=== PATIENT | female | born 1940 | race Caucasian/White ===

== ENCOUNTER 2022-10-20 09:31 | Observation (INO) ==
--- NOTE | 2022-09-30 11:35 | PAT Medication Instructions ---
Medication Instructions Date of Service September 30, 2022 Home Medications levothyroxine 75 mcg tablet (Synthroid) 75 mcg PO QAM metoprolol tartrate 25 mg tablet 12.5 - 25 mg PO UD olmesartan 40 mg tablet 40 mg PO QAM cholecalciferol (vitamin D3) 25 mcg (1,000 unit) capsule 1,000 units PO QAM hydrochlorothiazide 25 mg tablet 25 mg PO DAILY PRN Hypertension meloxicam 7.5 mg tablet 7.5 mg PO BID potassium chloride 10 mEq tablet,extended release 10 meq PO QPM simvastatin 10 mg tablet 10 mg PO QPM amlodipine 5 mg tablet 7.5 mg PO QAM apixaban 5 mg tablet (Eliquis) 5 mg PO BID buspirone 5 mg tablet 5 mg PO BID PRN Anxiety ASK your surgeon for instructions meloxicam 7.5 mg tablet 7.5 mg PO BID ASK your prescriber and surgeon apixaban 5 mg tablet (Eliquis) 5 mg PO BID (in order to get spinal anesthesia- will need to hold Eliquis/apixaban at least 72 hours prior to surgery) DO NOT take the morning of surgery olmesartan 40 mg tablet 40 mg PO QAM cholecalciferol (vitamin D3) 25 mcg (1,000 unit) capsule 1,000 units PO QAM hydrochlorothiazide 25 mg tablet 25 mg PO DAILY PRN Hypertension Take morning of surgery With a small sip of water, OTHERWISE NOTHING TO EAT OR DRINK AFTER MIDNIGHT: levothyroxine 75 mcg tablet (Synthroid) 75 mcg PO QAM metoprolol tartrate 25 mg tablet 12.5 - 25 mg PO UD amlodipine 5 mg tablet 7.5 mg PO QAM buspirone 5 mg tablet 5 mg PO BID PRN Anxiety (if needed) Take evening before surgery hydrochlorothiazide 25 mg tablet 25 mg PO DAILY PRN Hypertension (if needed) metoprolol tartrate 25 mg tablet 12.5 - 25 mg PO UD potassium chloride 10 mEq tablet,extended release 10 meq PO QPM simvastatin 10 mg tablet 10 mg PO QPM buspirone 5 mg tablet 5 mg PO BID PRN Anxiety (if needed) Other Notes If you have any questions please call us at [phone] or [phone] or [phone] or [phone]
--- NOTE | 2022-10-04 13:25 | Anesthesiology Consultation ---
Date of Service October 04, 2022 Assessment & Plan (1) Encounter for pre-operative examination: - COVID screening: Per assessment on 10/04: No known COVID-19 positive contacts or current COVID-19 related symptoms. Travel screen negative. Patient vaccinated. At surgeon discretion if preop Covid testing being done. - Outpatient joint assessment: Pt currently scheduled for inpatient pathway. If surgeon requests review for outpatient joint pathway, patient is not recommended candidate for outpatient joint program from anesthesia standpoint. - Cardiology visit (07/12/22): "TBS s/p DCP implantation December 2020.. pAF [id number] (age, HTN, Female).. Symptomatic junctional rhythm on Zio patch November 2020.. HR and BP well controlled.. euvolemic on exam.. device checks reveals stable thresholds with adequate pacing burden" One year followup recommended. - Eliquis instructions: patient made aware that in order for spinal anesthesia, Eliquis needs to be held 72 hours prior to surgery. Patient voiced understanding/will check if okay with prescriber. - Patient acceptable risk for surgery pending surgeon-ordered PCP preop evalu ation (JUAN DAVID Castro, appt 10/15). Chart Review Chart Review: Patient seen in Pre Admission Testing Teaching & Discussion Pre-Anesthesia Teaching/Discussion Notes: Instructed NPO after midnight before surgery,except medications with 15 cc of water. Medication instructions provided according to the PAT guidelines. History Surgery Operation Date: 10/20/22 11:55 Proposed Procedures p Left Total Knee Arthroplasty - Stas Degroot MD Height/Weight Height: 5 ft 2 in Weight: 85.3 kg Allergies Allergy/AdvReac Type Severity Reaction Status Date / Time No Known Allergies Allergy Verified 09/29/22 09:35 Medications Home Medications Medication Instructions Recorded Confirmed Last Taken levothyroxine 75 mcg tablet 75 mcg PO QAM 04/03/19 09/29/22 Unknown (Synthroid) metoprolol tartrate 25 mg tablet 12.5 - 25 mg PO UD 04/03/19 09/29/22 01/06/21 06:00 olmesartan 40 mg tablet 40 mg PO QAM 04/03/19 09/29/22 Unknown cholecalciferol (vitamin D3) 25 1,000 units PO QAM 04/06/19 09/29/22 Unknown mcg (1,000 unit) capsule hydrochlorothiazide 25 mg tablet 25 mg PO DAILY PRN Hypertension 04/06/19 09/29/22 01/06/21 06:00 meloxicam 7.5 mg tablet 7.5 mg PO BID 04/06/19 09/29/22 Unknown potassium chloride 10 mEq 10 meq PO QPM 04/06/19 09/29/22 Unknown tablet,extended release simvastatin 10 mg tablet 10 mg PO QPM 04/06/19 09/29/22 Unknown amlodipine 5 mg tablet 7.5 mg PO QAM 01/06/21 09/29/22 01/06/21 06:00 apixaban 5 mg tablet (Eliquis) 5 mg PO BID 09/29/22 09/29/22 Unknown buspirone 5 mg tablet 5 mg PO BID PRN Anxiety 09/29/22 09/29/22 Unknown Past Medical History Medical History Anxiety Chronic kidney disease Stage III History of COVID-2021 (home test)- cough, body aches, and had exposure Treated with Paxlovid > symptoms resolved Hyperlipidemia Hypertension Hypothyroidism 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 Fernando ([facility]) Paroxysmal atrial fibrillation Exercise / Class Metabolic Activity II 4-5 Yardwork/Stairs/Walk up hill Past Family History Family History Father Hypertension Diabetes Sister Diabetes Brother Diabetes Past Surgical History Surgical History History of dilatation and curettage Hx of colonoscopy S/P appendectomy S/P cholecystectomy Past Anesthesia History No Hx of Anesthesia Complications and No Family Hx of Anesthesia Complications History of PONV No Hx of PONV and No Hx of Motion Sickness Social History Smoking Status: Never smoker Do You Dip or Chew Tobacco: No Hx Alcohol Use: No Hx Substance Use: No substance use type: does not use Review of Systems Patient denies chest pain, shortness of breath, dyspnea on exertion, fever, chills, cough, wheezing, palpitations. Physical Exam Vital Signs VITALS BP 145/65 P 65 TEMP 98.2 SP02 94%RA RESP 16 PHYSICAL Full cervical extension range of motion. Full TMJ range of motion. TMD 3.5 finger breaths Mallampati Score 3 Dentition: partial upper Lungs: clear throughout to auscultation Cardiac: regular rate and rhythm, no murmurs noted Spine: normal Carotid arteries: negative bruit Extremities: no LE edema Lab Results Anesthesia Preop Results Results Anesthesia Widget: WBC 7.47 K/ul (4.8-10.8) 10/04/22 Hgb 13.5 g/dl (12.0-16.0) 10/04/22 Hct 39.7 % (37.0-47.0) 10/04/22 Plt 218 K/uL (130-400) 10/04/22 Na 141 mmol/L (136-145) 10/04/22 K 3.5 mmol/L (3.5-5.1) 10/04/22 Cl 102 mmol/L (98-107) 10/04/22 CO2 34 mmol/L (21-32) H 10/04/22 BUN 27 mg/dl (6-23) H 10/04/22 Creat 1.18 mg/dl (0.6-1.2) 10/04/22 Glucose Level 164 mg/dl (70-99(Fasting)) H 10/04/22 PT 10.3 Seconds (9.0-12.0) 10/04/22 PTT 27.9 Seconds (21.0-31.0) 10/04/22 INR 0.9 (0.9-1.1) 10/04/22 HA1c 5.8 % (4.5-5.6) H 10/04/22 Urine Color Yellow 10/04/22 Urine Appearance Clear (Clear) 10/04/22 Urine pH 5.0 (4.5-7.5) 10/04/22 Urine Specific [place] 1.023 (1.000-1.030) 10/04/22 Urine Protein Negative (Negative) 10/04/22 Urine Glucose (UA) Negative (Negative) 10/04/22 Urine Ketones Negative (Negative) 10/04/22 Urine Blood Negative (Negative) 10/04/22 Urine Nitrite Negative (Negative) 10/04/22 Urine Bilirubin Negative (Negative) 10/04/22 Urine Urobilinogen Negative (Negative) 10/04/22 Urine Leukocyte Esterase 2+ (Negative) H 10/04/22 Urine WBC (Auto) >30 /hpf (0-5) H 10/04/22 Urine RBC (Auto) 0-4 /hpf (0-4) 10/04/22 Urine Hyaline Casts (Auto) 1-5 /lpf (0-5) 10/04/22 Urine Epithelial Cells (Auto) 20-30 /lpf (0-5) H 10/04/22 Urine Bacteria (Auto) 1+ (Negative) H 10/04/22 Blood Type B Positive 10/04/22 Antibody Screen NEGATIVE 10/04/22 Testing Laboratory Results Surgeon's office made aware of abnormal UA* Electrocardiogram Date: 10/04/22 Atrial-paced rhythm with prolonged AV conduction at 66bpm. RBBB. Chest X-Ray Date: 10/04/22 FINDINGS: Left subclavian pacer. Cardiomediastinal and hilar silhouettes are within normal limits. No pneumothorax, pleural effusion, airspace consolidation or pulmonary edema. Bones appear grossly intact. Cholecystectomy. IMPRESSION: No acute process. Stress Test Date: 11/02/20 Type: DSE DSE is normal without resting LV wall motion abnormalities or inducible ischemia. 91% MPHR. No significant arrhythmias. Rest echo: EF 70%. Mild TR/AR. Mild mitral annular calcification. Grade I DD. Mild AV sclerosis. Other Testing Pacer check (09/19/22) Squirrly. Normal device function. 12.33 years battery longevity. AP 66.67%. RVP 0.04%. AT/AF burden 0%. Mode AAIR <=>DDDR. COVID-19 Risk Screen Screening Information COVID-19 Screen Date: 10/04/22 Exposure 21 Days Family/Household +COVID Last 21 Days: No Exposure 10 Days Any COVID Exposure Last 10 Days: No Symptoms Last 10 Days Experienced COVID Sx Last 10 Days: No + COVID 0-90 Days COVID + in Last 0-90 Days: No
--- NOTE | 2022-10-16 08:41 | History & Physical Report ---
Date of Service October 16, 2022 Assessment & Plan (1) Primary osteoarthritis of left knee: Plan: Treatment options discussed with the patient. She has failed conservative measures. She would like to proceed with surgical intervention. Risks, benefits and alternatives to surgery including but not limited to infection, DVT, pain, stiffness, need for revision surgery, damage to blood vessels, damage to nerves, PE, , were discussed with the patient and they wish to proceed. Plan for left total knee arthroplasty scheduled for October 20 at [facility] with Dr. Degroot. Plan on outpatient physical therapy. Plan on resuming home Eliquis postop for DVT prophylaxis. All questions answered. Patient will follow postop. History of Present Illness Chief Complaint: Left knee pain Primary Care Provider: Adamaris Jesus PA-C 82-year-old female with past medical history significant for hypertension, CKD, hypothyroidism, paroxysmal A-fib, pacemaker for tachybradycardia syndrome who presents with ongoing left knee pain. Pain is interfering with her daily activities. She has failed conservative measures including intra-articular steroid injection. She would like to proceed with surgical intervention. Patient denies headaches, sweats, fevers, chills, double vision, blurred vision, cough, sore throat, dysphagia, chest pain, sob, wheezing, n/v/d/c, numbness, tingling, fatigue, urinary symptoms, mood disorders. ROS positive for left knee pain and stiffness. Allergies Allergy/AdvReac Type Severity Reaction Status Date / Time No Known Allergies Allergy Verified 09/29/22 09:35 Home Medications Medication Instructions Recorded Confirmed Type levothyroxine 75 mcg tablet 75 mcg PO QAM 04/03/19 09/29/22 History (Synthroid) metoprolol tartrate 25 mg tablet 12.5 - 25 mg PO UD 04/03/19 09/29/22 History olmesartan 40 mg tablet 40 mg PO QAM 04/03/19 09/29/22 History cholecalciferol (vitamin D3) 25 1,000 units PO QAM 04/06/19 09/29/22 History mcg (1,000 unit) capsule hydrochlorothiazide 25 mg tablet 25 mg PO DAILY PRN Hypertension 04/06/19 09/29/22 History meloxicam 7.5 mg tablet 7.5 mg PO BID 04/06/19 09/29/22 History potassium chloride 10 mEq 10 meq PO QPM 04/06/19 09/29/22 History tablet,extended release simvastatin 10 mg tablet 10 mg PO QPM 04/06/19 09/29/22 History amlodipine 5 mg tablet 7.5 mg PO QAM 01/06/21 09/29/22 History apixaban 5 mg tablet (Eliquis) 5 mg PO BID 09/29/22 09/29/22 History buspirone 5 mg tablet 5 mg PO BID PRN Anxiety 09/29/22 09/29/22 History Past Med/Surg History Medical History Anxiety Chronic kidney disease Stage III History of COVID-2021 (home test)- cough, body aches, and had exposure Treated with Paxlovid > symptoms resolved Hyperlipidemia Hypertension Hypothyroidism 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 Fernando ([facility]) Paroxysmal atrial fibrillation Surgical History History of dilatation and curettage Hx of colonoscopy S/P appendectomy S/P cholecystectomy Family History Father Hypertension Diabetes Sister Diabetes Brother Diabetes Social History (Updated 04/03/19 @ 15:36 by Katie Hernández) Smoking Status: Never smoker Second Hand Exposure: Yes (HX YEARS AGO); Do You Dip or Chew Tobacco: No; Hx Alcohol Use: No Hx Substance Use: No Preferred Language: Chadian Communication Ability: Effective Visual Education Teacher Required: No Beliefs That Will Affect Care: None Current Living Situation: Alone Feels Safe at Home: Yes Assistive Devices: Cane, Denture - Upper and Glasses Review of Systems All systems reviewed & are unremarkable except as noted in HPI & below Physical Exam Constitutional: well developed and well nourished; no acute distress Eyes: PERRL, conjunctivae normal, anicteric sclerae ENMT: external ear and nose normal, oropharynx normal Neck: trachea midline, no thyromegaly Respiratory: normal respiratory effort, lungs clear to auscultation Cardiovascular: RRR, no murmur, no edema Musculoskeletal: Left knee: Range of motion is 10 to 115 degrees. Varus alignment. Mild effusion. Tenderness medial joint line. Mild crepitation on range of motion. Stable to valgus and varus stress test. Skin: no rashes, warm and dry Neurologic: patellar DTR's 2+ bilat, sensation intact Psychiatric: A+Ox3, euthymic affect Results & Data Diagnostic Findings Left knee radiographs demonstrate tricompartmental arthritic changes with end- stage osteoarthritis medial compartment, [id number]. There is periarticular osteophytes all 3 compartments. Radiopacity likely osteochondral loose body posterior lateral compartment.
[~2022-10-20 09:31] MED LIST: ACETAMINOPHEN 500 MG TAB PO SCH; BUPIVACAINE 0.5 % 5 MG/1 ML PF 10ML VIAL ONE; CeleBREX 200 MG CAP PO SCH; EPINEPHrine INJ 1 MG/ML AMP ONE; FAMOTIDINE 20 MG TAB PO SCH; GABAPENTIN 300 MG CAP PO SCH; LR 500ML BOLUS, THEN 15ML/HR IV SCH; METOCLOPRAMIDE HCL 10 MG TABLET PO SCH; ROPIVACAINE 0.5% 5 MG/ML 30 ML VIAL ONE; ROPIVACAINE 0.5% HCL/PF 150 MG, BUPIVACAINE 0.75% MPF 20 ML, EPINEPHrine 30MG/30ML (OR ... INFIL SCH; TRANEXAMIC ACID 1,000 MG **IV Intra-op IV SCH; TRANEXAMIC ACID 1,000 MG **IV Pre-op IV SCH; ceFAZolin 2000MG 2,000 MG/15 ML SYR IV SCH; dexAMETHasone 4 MG TAB PO SCH
[2022-10-20] MEDS ORDERED: ORTHO JOINT ANESTHETIC ONE (10:33)
[2022-10-20] MEDS ORDERED: PROPOFOL IV EMULSION 10 MG/ML 20 ML VIAL IV ONE (10:44)
[2022-10-20] MEDS ORDERED: MIDAZOLAM HCL 1 MG/ML 2ML VIAL ONE (10:44)
[2022-10-20] MEDS ORDERED: ePHEDrine sulfate 50 MG/ML AMP ONE (10:44)
[2022-10-20] MEDS ORDERED: SODIUM CHLORIDE 0.9% PF INJ 10 ML VIAL ONE (10:44)
[2022-10-20] MEDS ORDERED: ONDANSETRON INJ 2 MG/ML 2 ML VIAL ONE (10:44)
--- NOTE | 2022-10-20 11:19 | History & Physical Bridge Note ---
Date of Service October 20, 2022 History & Physical Bridge Note I have examined the patient, reviewed the History & Physical and in the interval since the performance of the History & Physical I have noted the following changes of clinical significance: no changes noted
--- NOTE | 2022-10-20 13:40 | Operative Report ---
Post Operative Report Pre & Post Diagnosis Operation Date: 10/20/22 11:40 Pre-Op Diagnosis: Left Knee Osteoarthritis Post-Op Diagnosis: Left Knee Osteoarthritis I identified the patient and participated in the time-out.: Yes Procedure Operation Date: 10/20/22 11:40 Actual Procedures p Left Total Knee Arthroplasty, Cemented(Left), maggie and Acticoat superficial wound VAC application- Stas eDgroot MD Surgeon Stas Degroot MD Middleware Developer Dustin RAY Estimated Blood Loss 5 Findings Consistent with Post-Op Diagnosis Specimens Bone cuts Drains 2 Hemovac Anesthesia Type MAC Spinal Regional Complications none Disposition Disposition: Recovery Room Indications 82-year-old female with severe knee osteoarthritis left knee failed conservative management. Radiographs demonstrate tricompartmental DJD varus knee [id number] medial and lateral compartment with some bone loss medial compartment. Description of Procedure Patient taken to the operating room the size under spinal MAC regional block anesthesia. Patient was placed supine on the operating table. A pneumatic tourniquet was placed about the left upper thigh. The left lower extremity was prepped and draped in sterile fashion. Knee exam demonstrated range of motion 15 to 115 degrees no pseudolaxity no instability moderate effusion. The leg was elevated exsanguinated with an Esmarch bandage and pneumatic tourniquet was raised to 325 millimeters of mercury. Skin incised sharply in longitudinal fashion. Subcutaneous flaps elevated. Incision was made through the medial retinaculum extending up in the mid third of the quadriceps tendon and down to the medial tibial tubercle. Intra-articular findings demonstrated tricompartmental osteoarthritis. There is [id number] in the medial compartment with some bone loss there was [id number] in the lateral compartment as well. There were patellar osteophytes and patellofemoral OA. There was 1 large loose body that was resected.. The [employer] total knee arthroplasty system was used. To expose the knee the infrapatellar fat pad was resected. The meniscal remnants and cruciate ligaments were resected. The anterior fat pad over the femur in the area of the anterior flange of the femoral component was resected. Lateral synovial bands release. The femur was exposed. An intramedullary drill hole was made into the canal. A guide daniel was placed. Distal femoral cutting guide was adjusted to resect a 5 degree valgus cut with 10 millimeters distal femur resected. The knee was extended and a subperiosteal peel lateral release was performed around the patella. Patella width was measured and width was reproduced using a freehand cut technique and a 32 symmetrical patella component. The 3 drill holes were made and the excess lateral facet was beveled off to prevent any impingement. Attention was taken back to the femur which was exposed with retractors and the femoral sizing guide was pinned in position. The drill holes were placed in 3 of external rotation to match epicondylar axis. Femur sized for a 4 component. The 4-in-1 cutting block was placed and then the anterior posterior and chamfer cuts are made. The tibia was then subluxed. The external tibial cutting guide was just to make a perpendicular cut to the long axis of the tibia below the most deficient bone loss side. A lamina automatic hemmer was used and the flexion extension gaps were balanced. All posterior osteophytes removed. All meniscal remnants were resected. The tibia exposed and the trial tibial component size 3 was externally rotated in line with the tibial tubercle and pinned in position. The punch for stem was used. The notch cutting device was centered appropriately and the femoral notch cut was made. The femoral trial was inserted. Trial tibial inserts were placed and size 11 gave balanced ligaments through flexion and extension. Patella tracking was assessed. The patella tracked centrally. The trial components were then removed and the orthomix anesthetic cocktail was injected per protocol. The knee was then copiously irrigated with pulsatile lavage saline solution. Final components were then cemented with Simplex cement. Final components were [place] triathlon posterior stabilized size 4 left femoral component, 3 primary tibial baseplate, 3 x 11 mm posterior s tabilized X.3 polyethylene tibial bearing insert and a symmetrical patella X.3 polyethylene size 33 x 9 mm patella. After the cement cured the Betadine soak was used for 3 minutes. Further pulsatile lavage irrigation was then performed and 2 Hemovac drains were brought out laterally. The quadriceps tendon and medial retinaculum were closed with figure of 8 #1 Vicryl sutures. The knee was taken through full range of motion and the repair was secure. Knee range of motion was 0 through 130 degrees. The subcutaneous tissues were closed with 2-0 Vicryl sutures. Skin was closed with dinesh. Maggie and Acticoat superficial wound VAC was applied. The patient tolerated the procedure well. Dustin RAY was my physician nurse practitioner physicians assistant who participated as waiter/waitress first class and was involved in all aspects of the procedure including patient positioning prepping and draping,leg positioning ,soft tissue retraction and instrument management and participated in the closing and will participate in postoperative care of the patient. The patient tolerated the procedure well. I attest to the content of the Intraoperative Record and any orders documented therein. Any exceptions are noted below.
--- NOTE | 2022-10-20 14:49 | Anesthesiology Progress Note ---
Date of Service October 20, 2022 Anesthesia Post Procedure Vital Signs Vital Signs: Temp Pulse Pulse Resp BP Pulse Ox O2 Del Method 10/20/22 14:40 67 12 130/69 98 Room Air 10/20/22 14:30 69 12 137/66 98 Oxymask 10/20/22 14:20 63 16 135/71 100 Oxymask 10/20/22 14:14 36.2 C L 69 15 132/71 100 Oxymask 10/20/22 09:56 36.4 C L 83 20 133/84 96 Room Air O2 Flow Rate 10/20/22 14:40 10/20/22 14:30 2 10/20/22 14:20 4 10/20/22 14:14 6 10/20/22 09:56 Pain Intensity Left Knee: Pain Intensity: 8 Transfer of Care Handoff Completed per policy Notes Mental Status: alert / awake / arousable Patient Amnestic to Procedure: Yes Nausea / Vomiting: adequately controlled Pain: adequately controlled Airway Patency, RR, SpO2: stable & adequate BP & HR: stable & adequate Hydration State: stable & adequate Neuraxial Anesthesia: was administered and sensory block is resolving Anesthetic Complications: no major complications apparent
--- NOTE | 2022-10-20 15:24 | XRay Report ---
XR knee LT 1 or 2V routine CLINICAL HISTORY: Postoperative evaluation. COMPARISON: None FINDINGS: Alignment of the total left knee arthroplasty is anatomic. There is no periprosthetic frac ture. There are no unexpected radiopaque foreign bodies. There are skin dinesh. IMPRESSION: Expected findings following total left knee arthroplasty. ACT 112: Negative or not required by law. Electronically signed by: Daniel Acuña M.D. 10/20/2022 3:23 PM
[2022-10-20] MEDS ORDERED: bisacodyL 10 MG SUPP PR PRN (15:55)
[2022-10-20] MEDS ORDERED: NALOXONE HCL 0.4 MG/1 ML VIAL/CARP IV PRN (15:55)
[2022-10-20] MEDS ORDERED: busPIRone 5 MG TAB PO PRN (15:55)
[2022-10-20] MEDS ORDERED: HYDROmorphone INJ 0.5 MG/0.5 ML SYR IV PRN (15:55)
[2022-10-20] MEDS ORDERED: oxyCODONE HCL IR 5 MG TAB (IMMEDIATE RELEASE) PO PRN (15:55)
[2022-10-20] MEDS ORDERED: hydroCHLOROthiazide 25 MG TAB PO PRN (15:55)
[2022-10-20] MEDS ORDERED: METOCLOPRAMIDE HCL INJ 5 MG/ML 2 ML VIAL IV PRN (15:55)
[2022-10-20] MEDS ORDERED: ONDANSETRON INJ 2 MG/ML 2 ML VIAL IV PRN (15:55)
[2022-10-20] MEDS ORDERED: MAGNESIUM HYDROXIDE SUSP 30 ML UDC PO PRN (15:55)
[2022-10-20] MEDS ORDERED: SODIUM CHLORIDE 0.9% 1000ML 1,000 ML IV SCH (15:55)
--- NOTE | 2022-10-20 16:00 | Consultation ---
Date of Consultation October 20, 2022 Assessment & Plan (1) S/P total knee arthroplasty: Post op day# 0 S/P Left TKA by Dr Degroot EBL# 5ml -pain management per ortho -wound management per ortho -PT/OT as appropriate -DVT prophylaxis per ortho -incentive spirometry -monitor H&H for acute blood loss anemia; pre-op Hgb: 13.5 (2) Paroxysmal atrial fibrillation: Anticoagulated on Eliquis Last dose of Eliquis 10/16/2022. -Resume Eliquis tonight per ortho recommendations -Continue metoprolol tartrate (3) Tachy-kb syndrome: S/P Pacemaker (4) Trigeminal neuralgia: -Continue Trileptal [place] [facility] (5) Hypertension: -Continue amlodipine, olmesartan -Hold HCTZ and reassess tomorrow (6) Hyperlipidemia: -Continue simvastatin (7) CKD (chronic kidney disease), stage III: Baseline Cr: 1.1 -Monitor renal functions, avoid nephrotoxic agents when possible (8) Hypothyroidism: -Continue levothyroxine (9) GERD (gastroesophageal reflux disease): -Continue Pepcid DVT Prophylaxis -SCDs Disposition per primary team Follows with Adamaris Jesus PA-C for routine care Pt was seen and care coordinated with Dr Samaniego. See addendum Thank you for this consultation. We will follow the patient with you during their hospital stay. You can reach a [facility] via [facility] Supervising Physician Co-Signing Physician Notes I have seen and examined the patient and have discussed the case with the provider above. I agree with the assessment and plan as stated. 82 yo F recovering well from her knee surgery today. Pain is controlled. No symptoms at this time. Physical exam reveals reg rate and rhythm with S1/2 heard and no heart murmurs. Lungs are CTAB. Abdomen is soft NTND. She is NVI in lower extremities bilaterally. Labwork/medications reviewed. Cont recommendations above. Thank you for this consultation. DO Aden History of Present Illness Requesting Physician: Dr Degroot Reason for Consultation: Post op medical management Attending Physician: Stas Degroot MD History of Present Illness Patient is 82-year-old female with PMH HTN, HLD, tachybrady syndrome s/p pacemaker, paroxysmal atrial fibrillation anticoagulated on Eliquis, RBBB, CKD III, trigeminal neuralgia, anxiety, GERD, OA seen in medical consultation s/p left TKA today by Dr. Degroot. Post op patient reports is doing well. Denies any pain currently. States numbness/tingling leg starting to wear off. Denies fever/chills, N/V/D/C, MIRANDA, dizziness, CP, SOB, palpitations, cough, rhinorrhea, abdominal pain, extremity edema, rashes, urinary symptoms. Allergies Allergy/AdvReac Type Severity Reaction Status Date / Time No Known Allergies Allergy Verified 10/20/22 09:50 Home Medications Medication Instructions Recorded Confirmed Type levothyroxine 75 mcg tablet 75 mcg PO QAM 04/03/19 10/20/22 History (Synthroid) metoprolol tartrate 25 mg tablet 12.5 - 25 mg PO UD 04/03/19 10/20/22 History olmesartan 40 mg tablet 40 mg PO QAM 04/03/19 10/20/22 History cholecalciferol (vitamin D3) 25 1,000 units PO QAM 04/06/19 10/20/22 History mcg (1,000 unit) capsule hydrochlorothiazide 25 mg tablet 25 mg PO DAILY 04/06/19 10/20/22 History meloxicam 7.5 mg tablet 7.5 mg PO BID 04/06/19 10/20/22 History potassium chloride 10 mEq 10 meq PO QPM 04/06/19 10/20/22 History tablet,extended release simvastatin 10 mg tablet 10 mg PO QPM 04/06/19 10/20/22 History amlodipine 5 mg tablet 7.5 mg PO QAM 01/06/21 10/20/22 History apixaban 5 mg tablet (Eliquis) 5 mg PO BID 09/29/22 10/20/22 History buspirone 5 mg tablet 5 mg PO BID PRN Anxiety 09/29/22 10/20/22 History famotidine 20 mg tablet 20 mg PO BID 10/20/22 10/20/22 History oxcarbazepine 300 mg tablet 300 mg PO BID 10/20/22 10/20/22 History Patient History Medical History (Updated 10/20/22 @ 16:32 by Svetlana Nash PA-C) Anxiety Chronic kidney disease Stage III CKD (chronic kidney disease), stage III GERD (gastroesophageal reflux disease) History of COVID-19 2021 (home test)- cough, body aches, and had exposure Treated with Paxlovid > symptoms resolved Hyperlipidemia Hypertension Hypothyroidism 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 Fernando ([facility]) Paroxysmal atrial fibrillation Tachy-kb syndrome Trigeminal neuralgia Surgical History (Updated 10/20/22 @ 16:32 by Svetlana Nash PA-C) History of dilatation and curettage Hx of colonoscopy S/P appendectomy S/P cholecystectomy Family History Father Hypertension Diabetes Sister Diabetes Brother Diabetes Social History Smoking Status: Never smoker Second Hand Exposure: Yes (HX YEARS AGO); Do You Dip or Chew Tobacco: No; Tobacco Cessation Education Requested by Patient: No Hx Alcohol Use: No Hx Substance Use: No Preferred Language: Kosovan Communication Ability: Effective [employer] Required: No Beliefs That Will Affect Care: None Current Living Situation: Alone Other Information That Helps Us Care for You: No Feels Safe at Home: Yes Safety Concerns: Feels Safe At This Time Assistive Devices: Cane, Denture - Upper and Glasses Assistive Devices Comment: PARTIAL DENTURE Review of Systems Review of Systems: All systems reviewed & are unremarkable except as noted in HPI & below Physical Exam Physical Exam: General: no distress, WDWN Head: normocephalic, atraumatic Eyes: conjunctiva non-injected, anicteric ENT: normal inspection external ears, nose, mucous membranes moist Neck: supple, trachea midline Lungs: clear, no respiratory distress, no wheezing/rhonchi/rales CV: RRR, no pretibial edema Abd: normal BS, soft, non-tender Ext: no cyanosis, no calf tenderness; LLE: +surgical dressing/DANUTA wrap in place. +hemovac in place with serosanguineous drainage Neuro: A&O x 3, no focal deficits noted, normal affect Skin: warm, dry Results & Data Vital Signs (Past 12 Hours) Vital Signs Temp Pulse Pulse Resp BP Pulse Ox O2 Del Method 10/20/22 15:15 75 13 124/57 L 94 Room Air 10/20/22 15:00 72 14 127/70 95 Room Air 10/20/22 14:45 36.4 C L 74 16 138/66 96 Room Air 10/20/22 14:40 67 12 130/69 98 Room Air 10/20/22 14:30 69 12 137/66 98 Oxymask 10/20/22 14:20 63 16 135/71 100 Oxymask 10/20/22 14:14 36.2 C L 69 15 132/71 100 Oxymask 10/20/22 09:56 36.4 C L 83 20 133/84 96 Room Air O2 Flow Rate 10/20/22 15:15 10/20/22 15:00 10/20/22 14:45 10/20/22 14:40 10/20/22 14:30 2 10/20/22 14:20 4 10/20/22 14:14 6 10/20/22 09:56
[2022-10-20] MEDS: ceFAZolin 2000MG 2,000 MG/15 ML SYR IV SCH (19:55)
[2022-10-20] MEDS: DOCUSATE SODIUM 100 MG CAP PO SCH (19:55)
[2022-10-20] MEDS: FAMOTIDINE 20 MG TAB PO SCH (19:57)
[2022-10-20] MEDS: OXcarbazepine 150 MG TABLET PO SCH (19:59)
[2022-10-20] MEDS ORDERED: SIMVASTATIN 10 MG TAB PO SCH (21:00)
[2022-10-20] MEDS ORDERED: METOPROLOL TARTRATE 25 MG TAB PO SCH (21:00)
[2022-10-20] MEDS ORDERED: SENNA 8.6 MG TAB PO SCH (21:00)
[2022-10-20] MEDS ORDERED: POTASSIUM CHLORIDE 10 MEQ TABCR PO SCH (21:00)
[2022-10-20] MEDS: ACETAMINOPHEN 500 MG TAB PO SCH (21:51)
[2022-10-21] MEDS: ceFAZolin 2000MG 2,000 MG/15 ML SYR IV SCH (04:16)
[2022-10-21] MEDS: ACETAMINOPHEN 500 MG TAB PO SCH (05:47)
[2022-10-21 05:57] LABS: Hematocrit (blood only) 34.1 % (37.0-47.0); Hemoglobin 11.7 g/dl (12.0-16.0); Mean Corpuscular Hemoglobin 29.1 pg (25.0-34.0); Mean Corpuscular Hgb Conc 34.3 g/dL (32.0-36.0); Mean Corpuscular Volume 84.8 fL (80.0-100.0); Mean Platelet Volume 9.3 fL (9.4-12.4); Platelet Count 212 K/uL (130-400); RDW Coefficient of Variation 12.7 % (11.5-14.5); RDW Standard Deviation 39.3 fL (36.4-46.3); Red Blood Count 4.02 M/uL (4.20-5.40); White Blood Count 14.03 K/ul (4.8-10.8)
[2022-10-21 06:21] LABS: BUN Creatinine Ratio 21.6 (10-20); Calcium 9.3 mg/dl (8.6-10.3); Creatinine Clr Calc Pharmacy 37.6 ml/min; Est GFR (African American) 50.8 ml/min; Est GFR (Non-African American) 43.8 ml/min; Potassium 4.1 mmol/L (3.5-5.1)
[2022-10-21] MEDS ORDERED: LEVOTHYROXINE SODIUM 75 MCG TABLET PO SCH (06:30)
--- NOTE | 2022-10-21 06:57 | Orthopedic Progress Note ---
Date of Service October 21, 2022 Assessment & Plan (1) Primary osteoarthritis of left knee: Plan: Postop day 1 left total knee arthroplasty -PT/OT -DVT prophylaxis: SCDs, teds, home Eliquis -Pain management as written -AM labs: Hemoglobin down to 11.7 from 13.5 preop. Acute blood loss anemia due to surgical loss versus dilutional. Leukocytosis likely reactive due to surgical stress/perioperative steroids. Patient is asymptomatic. -Discharge planning: plan on discharge home with outpatient physical therapy. We will plan on home today as long as therapy progresses well. Admission and Anticipated Discharge Date Admission Date: October 20, 2022 Subjective Patient is postop day 1 left total knee. She is doing well this morning. Pain is controlled. No current complaints. Denies chest pain, shortness of breath, nausea/vomiting/diarrhea, headaches or dizziness. Review of Systems Review of Systems: All systems reviewed & are unremarkable except as noted in Subjective Physical Exam Physical Exam: Patient is seen sitting in bedside chair. Left knee dressing is clean, dry, intact. Toes are mobile with good dorsiflexion. No calf tenderness. Distally neurovascular status and sensation grossly intact. Constitutional: WD/WN, vitals as above Results & Data Vital Signs (Past 12 Hours) Vital Signs Temp Pulse Resp BP Pulse Ox O2 Del Method 10/21/22 06:00 36.7 C 85 18 171/80 H 94 Room Air 10/21/22 03:05 36.8 C 82 18 130/75 93 Room Air 10/20/22 19:55 Room Air 10/20/22 21:56 36.4 C L 80 18 131/76 93 Room Air Laboratory Results Lab Results 10/20/22 10/21/22 10/21/22 Range/Units 09:40 05:37 05:37 WBC 14.03 H (4.8-10.8) K/ul RBC 4.02 L (4.20-5.40) M/uL Hgb 11.7 L (12.0-16.0) g/dl Hct 34.1 L (37.0-47.0) % MCV 84.8 (80.0-100.0) fL MCH 29.1 (25.0-34.0) pg MCHC 34.3 (32.0-36.0) g/dL RDW Std Deviation 39.3 (36.4-46.3) fL RDW Coeff of Peg 12.7 (11.5-14.5) % Plt Count 212 (130-400) K/uL MPV 9.3 L (9.4-12.4) fL Sodium 140 (136-145) mmol/L Potassium 4.1 (3.5-5.1) mmol/L Chloride 103 (98-107) mmol/L Carbon Dioxide 29 (21-32) mmol/L Anion Gap 8 (3-11) BUN 25 H (6-23) mg/dl Creatinine 1.16 (0.6-1.2) mg/dl Est Cr Clr Drug Dosing 37.6 ml/min Est GFR ( Amer) 50.8 ml/min Est GFR (Non-Af Amer) 43.8 ml/min BUN/Creatinine Ratio 21.6 H (10-20) Glucose 130 H (70-99(Fasting)) mg/dl Calcium 9.3 (8.6-10.3) mg/dl SARS-CoV-2, RNA, NAAT NEGATIVE (NEGATIVE)
[2022-10-21] MEDS: OXcarbazepine 150 MG TABLET PO SCH (08:07)
[2022-10-21] MEDS: FAMOTIDINE 20 MG TAB PO SCH (08:08)
[2022-10-21] MEDS: DOCUSATE SODIUM 100 MG CAP PO SCH (08:08)
[2022-10-21] MEDS ORDERED: hydroCHLOROthiazide 25 MG TAB PO SCH (09:00)
[2022-10-21] MEDS ORDERED: CHOLECALCIFEROL 1,000 UNITS 25 MCG TAB PO SCH (09:00)
[2022-10-21] MEDS ORDERED: METOPROLOL TARTRATE 25 MG TAB PO SCH (09:00)
[2022-10-21] MEDS ORDERED: LOSARTAN POTASSIUM 50 MG TAB PO SCH (09:00)
[2022-10-21] MEDS ORDERED: amLODIPine BESYLATE 5 MG TAB PO SCH (09:00)
[2022-10-21] MEDS ORDERED: MULTIVITAMIN TAB PO SCH (09:00)
--- NOTE | 2022-10-21 09:10 | Hospitalist Progress Note ---
Date of Service October 21, 2022 Assessment & Plan (1) S/P total knee arthroplasty: Plan: Post op day# 1 S/P Left TKA by Dr Degroot -pain management per ortho -wound management per ortho -PT/OT as appropriate -DVT prophylaxis per ortho -incentive spirometry -monitor H&H Acute blood loss anemia, post-op, likely component of dilution as well - pre-op Hgb: 13.5, now 11.7, expected, no need for blood transfusion (2) Paroxysmal atrial fibrillation: Plan: Anticoagulated on Eliquis Last dose of Eliquis 10/16/2022. -Resume Eliquis per ortho recommendations -Continue metoprolol tartrate (3) Tachy-kb syndrome: Plan: S/P Pacemaker (4) Trigeminal neuralgia: Plan: -Continue Trileptal -Following with [facility] [place] (5) Hypertension: Plan: -Continue amlodipine, olmesartan -Held HCTZ , can resume on discharge (6) Hyperlipidemia: Plan: -Continue simvastatin (7) CKD (chronic kidney disease), stage III: Plan: Baseline Cr: 1.1 -Monitor renal functions, avoid nephrotoxic agents when possible (8) Hypothyroidism: Plan: -Continue levothyroxine (9) GERD (gastroesophageal reflux disease): Plan: -Continue Pepcid DVT Prophylaxis -SCDs Disposition per primary team Follows with Adamaris Jesus PA-C for routine care Thank you for this consultation. We will follow the patient with you during their hospital stay. You can reach a member of the [facility]ist Team 20/12 via [email or web address] Admission and Anticipated Discharge Date Admission Date: October 20, 2022 Subjective Pt seen in follow up of TKA Pt is feeling well this morning, she is working with physical therapy, denies a ny significant pain Also denies any fevers chills chest pain shortness of breath No abdominal pain Review of Systems Review of Systems: All systems reviewed & are unremarkable except as noted in Subjective Physical Exam Physical Exam: General: no distress, WDWN Head: normocephalic, atraumatic Eyes: conjunctiva non-injected, anicteric ENT: normal inspection external ears, nose, mucous membranes moist Neck: supple Lungs: clear, no respiratory distress, no wheezing/rhonchi/rales CV: RRR, no pretibial edema Abd: normal BS, soft, non-tender Ext: LLE: +surgical dressing/DANUTA wrap in place. +hemovac in place with serosanguineous drainage Neuro: A&O x 3, no facial asymmetry, speech fluent, moves extremities Skin: warm, dry Results & Data Results & Data Vital Signs (Past 12 Hours) Vital Signs Temp Pulse Resp BP Pulse Ox O2 Del Method 10/21/22 06:00 36.7 C 85 18 171/80 H 94 Room Air 10/21/22 03:05 36.8 C 82 18 130/75 93 Room Air 10/20/22 21:56 36.4 C L 80 18 131/76 93 Room Air Laboratory Results 10/21/22 10/21/22 10/20/22 Range/Units 05:37 05:37 09:40 WBC 14.03 H (4.8-10.8) K/ul RBC 4.02 L (4.20-5.40) M/uL Hgb 11.7 L (12.0-16.0) g/dl Hct 34.1 L (37.0-47.0) % MCV 84.8 (80.0-100.0) fL MCH 29.1 (25.0-34.0) pg MCHC 34.3 (32.0-36.0) g/dL RDW Std Deviation 39.3 (36.4-46.3) fL RDW Coeff of Peg 12.7 (11.5-14.5) % Plt Count 212 (130-400) K/uL MPV 9.3 L (9.4-12.4) fL Sodium 140 (136-145) mmol/L Potassium 4.1 (3.5-5.1) mmol/L Chloride 103 (98-107) mmol/L Carbon Dioxide 29 (21-32) mmol/L Anion Gap 8 (3-11) BUN 25 H (6-23) mg/dl Creatinine 1.16 (0.6-1.2) mg/dl Est Cr Clr Drug Dosing 37.6 ml/min Est GFR ( Amer) 50.8 ml/min Est GFR (Non-Af Amer) 43.8 ml/min BUN/Creatinine Ratio 21.6 H (10-20) Glucose 130 H (70-99(Fasting)) mg/dl Calcium 9.3 (8.6-10.3) mg/dl SARS-CoV-2, RNA, NAAT NEGATIVE (NEGATIVE) Medications Administered Current Inpatient Medications Acetaminophen (Acetaminophen 500 Mg Tab) 1,000 mg PO Q8 YVETTE Stop: 11/19/22 21:59 Last Admin: 10/21/22 05:47 Dose: 1,000 mg Amlodipine Besylate (Amlodipine Besylate 5 Mg Tab) 7.5 mg PO QAM YVETTE Stop: 11/20/22 08:59 Last Admin: 10/21/22 08:05 Dose: 7.5 mg Apixaban (Apixaban 5 Mg Tablet) 5 mg PO BID YVETTE Stop: 11/20/22 20:59 Bisacodyl (Bisacodyl 10 Mg Supp) 10 mg [place] DAILY PRN PRN Reason: Constipation Stop: 11/19/22 15:54 Buspirone HCl (Buspirone 5 Mg Tab) 5 mg PO BID PRN PRN Reason: Anxiety Stop: 11/19/22 15:54 Last Admin: 10/21/22 06:07 Dose: 5 mg Docusate Sodium (Docusate Sodium 100 Mg Cap) 100 mg PO BID YVETTE Stop: 11/19/22 20:59 Last Admin: 10/21/22 08:08 Dose: 100 mg Famotidine (Famotidine 20 Mg Tab) 20 mg PO BID YVETTE Stop: 11/19/22 20:59 Last Admin: 10/21/22 08:08 Dose: 20 mg Hydrochlorothiazide (Hydrochlorothiazide 25 Mg Tab) 25 mg PO DAILY YVETTE Stop: 11/20/22 08:59 Hydromorphone HCl (Hydromorphone Inj 0.5 Mg/0.5 Ml Syr) 0.5 mg IV Q4H PRN PRN Reason: Pain or Pre PT Stop: 11/03/22 15:54 Levothyroxine Sodium (Levothyroxine Sodium 75 Mcg Tablet) 75 mcg PO DAILYBB YVETTE Stop: 11/20/22 06:29 Last Admin: 10/21/22 06:07 Dose: 75 mcg Losartan Potassium (Losartan Potassium 50 Mg Tab) 100 mg PO QAM YVETTE Stop: 11/20/22 08:59 Last Admin: 10/21/22 08:06 Dose: 100 mg Magnesium Hydroxide (Magnesium Hydroxide Susp 30 Ml Udc) 30 ml PO Q6H PRN PRN Reason: Constipation Stop: 11/19/22 15:54 Metoclopramide HCl (Metoclopramide Hcl Inj 5 Mg/Ml 2 Ml Vial) 10 mg IV Q6H PRN PRN Reason: Nausea And Vomiting Stop: 11/19/22 15:54 Metoprolol Tartrate (Metoprolol Tartrate 25 Mg Tab) 25 mg PO QAM [facility] Stop: 11/20/22 08:59 Last Admin: 10/21/22 08:05 Dose: 25 mg Metoprolol Tartrate (Metoprolol Tartrate 25 Mg Tab) 12.5 mg PO QPM [facility] Stop: 11/19/22 20:59 Last Admin: 10/20/22 19:58 Dose: 12.5 mg Multivitamins (Multivitamin Tab) 1 tab PO QAM [facility] Stop: 11/20/22 08:59 Last Admin: 10/21/22 08:06 Dose: 1 tab Naloxone HCl (Naloxone Hcl 0.4 Mg/1 Ml Vial/Carp) 0.1 mg IV Q5M PRN PRN Reason: Oversedation/Resp Depression Stop: 11/19/22 15:54 Ondansetron HCl (Ondansetron Inj 2 Mg/Ml 2 Ml Vial) 4 mg IV Q6H PRN PRN Reason: Nausea And Vomiting Stop: 11/19/22 15:54 Oxcarbazepine (Oxcarbazepine 150 Mg Tablet) 300 mg PO BID [facility] Stop: 11/19/22 20:59 Last Admin: 10/21/22 08:07 Dose: 300 mg Oxycodone HCl (Oxycodone Hcl Ir 5 Mg Tab (Immediate Release)) 5 - 10 mg PO Q4H PRN PRN Reason: Pain or Pre PT Stop: 11/03/22 15:54 Last Admin: 10/21/22 08:15 Dose: 5 mg Potassium Chloride (Potassium Chloride 10 Meq Tabcr) 10 meq PO QPM YVETTE Stop: 11/19/22 20:59 Last Admin: 10/20/22 20:00 Dose: 10 meq Sennosides (Senna 8.6 Mg Tab) 17.2 mg PO HS [facility] Stop: 11/19/22 20:59 Last Admin: 10/20/22 19:56 Dose: 17.2 mg Simvastatin (Simvastatin 10 Mg Tab) 10 mg PO QPM [facility] Stop: 11/19/22 20:59 Last Admin: 10/20/22 20:00 Dose: 10 mg Vitamin D (Cholecalciferol 1,000 Units 25 Mcg Tab) 1,[address] [facility] Stop: 11/20/22 08:59 Last Admin: 10/21/22 08:07 Dose: 1,000 units
[2022-10-21] MEDS ORDERED: APIXABAN 5 MG TABLET PO SCH (21:00)
--- NOTE | 2022-10-22 18:26 | Discharge Summary ---
Date of Service October 22, 2022 Admission HPI Per Admitting Provider 82-year-old female with past medical history significant for hypertension, CKD, hypothyroidism, paroxysmal A-fib, pacemaker for tachybradycardia syndrome who presents with ongoing left knee pain. Pain is interfering with her daily activities. She has failed conservative measures including intra-articular steroid injection. She would like to proceed with surgical intervention. Patient denies headaches, sweats, fevers, chills, double vision, blurred vision, cough, sore throat, dysphagia, chest pain, sob, wheezing, n/v/d/c, numbness, tingling, fatigue, urinary symptoms, mood disorders. ROS positive for left knee pain and stiffness. Admission Exam Per Admitting Provider Constitutional: well developed and well nourished; no acute distress Eyes: PERRL, conjunctivae normal, anicteric sclerae ENMT: external ear and nose normal, oropharynx normal Neck: trachea midline, no thyromegaly Respiratory: normal respiratory effort, lungs clear to auscultation Cardiovascular: RRR, no murmur, no edema Musculoskeletal: Left knee: Range of motion is 10 to 115 degrees. Varus alignment. Mild effusion. Tenderness medial joint line. Mild crepitation on range of motion. Stable to valgus and varus stress test. Skin: no rashes, warm and dry Neurologic: patellar DTR's 2+ bilat, sensation intact Psychiatric: A+Ox3, euthymic affect Principal Diagnosis Left knee osteoarthritis Discharge Exam Patient is seen sitting in bedside chair. Left knee dressing is clean, dry, intact. Toes are mobile with good dorsiflexion. No calf tenderness. Distally neurovascular status and sensation grossly intact. Constitutional WD/WN, vitals as above Discharge Data Allergies Allergy/AdvReac Type Severity Reaction Status Date / Time No Known Allergies Allergy Verified 10/20/22 09:50 Consultations 10/15/22 16:37 Consult Hospitalist Routine Procedures Performed Operation Date: 10/20/22 11:40 Actual Procedures p Left Total Knee Arthroplasty, Cemented(Left) - Stas Degroot MD Ordered Studies 10/20/22 05:00 US - OR guided needle placemen Routine Hospital Course (1) Primary osteoarthritis of left knee: Postop day 1 left total knee arthroplasty -PT/OT -DVT prophylaxis: SCDs, teds, home Eliquis -Pain management as written -AM labs: Hemoglobin down to 11.7 from 13.5 preop. Acute blood loss anemia due to surgical loss versus dilutional. Leukocytosis likely reactive due to surgical stress/perioperative steroids. Patient is asymptomatic. -Discharge planning: plan on discharge home with outpatient physical therapy. We will plan on home today as long as therapy progresses well. Lab Results 10/20/22 10/21/22 10/21/22 Range/Units 09:40 05:37 05:37 WBC 14.03 H (4.8-10.8) K/ul RBC 4.02 L (4.20-5.40) M/uL Hgb 11.7 L (12.0-16.0) g/dl Hct 34.1 L (37.0-47.0) % MCV 84.8 (80.0-100.0) fL MCH 29.1 (25.0-34.0) pg MCHC 34.3 (32.0-36.0) g/dL RDW Std Deviation 39.3 (36.4-46.3) fL RDW Coeff of Peg 12.7 (11.5-14.5) % Plt Count 212 (130-400) K/uL MPV 9.3 L (9.4-12.4) fL Sodium 140 (136-145) mmol/L Potassium 4.1 (3.5-5.1) mmol/L Chloride 103 (98-107) mmol/L Carbon Dioxide 29 (21-32) mmol/L Anion Gap 8 (3-11) BUN 25 H (6-23) mg/dl Creatinine 1.16 (0.6-1.2) mg/dl Est Cr Clr Drug Dosing 37.6 ml/min Est GFR ( Amer) 50.8 ml/min Est GFR (Non-Af Amer) 43.8 ml/min BUN/Creatinine Ratio 21.6 H (10-20) Glucose 130 H (70-99(Fasting)) mg/dl Calcium 9.3 (8.6-10.3) mg/dl SARS-CoV-2, RNA, NAAT NEGATIVE (NEGATIVE) Total Time Total Time Spent Total Time Spent (In Minutes): 20 Discharge Plan Discharge Items Patient Disposition: Home - Self-Care Reason For Visit: Left Knee Osteoarthritis Discharge Diagnosis: Left knee osteoarthritis Activity: Per Instructions section Non-emergency contact: Surgeon Call non-emergency contact if: you have any medication questions, your pain is concerning for you, you have a fever, your temperature is above 101, your wound has increased redness and your wound has increased drainage Follow-up/Referrals: Adamaris Jesus PA-C [Primary Care Provider] - Diet: Regular Addtl Attending Provider Instructions: ACTIVITY RECOMMENDATIONS: SELF CARE INSTRUCTIONS AFTER TOTAL KNEE REPLACEMENT A. You may need to continue a physical therapy program after discharge from the hospital. There are several options available to you. Your doctor will assist you in selecting the best one for you. 1. An out-patient facility 2 to 3 times a week for therapy or home therapy. 2. Continue working on all exercises taught to you in the hospital. Your goals should be to increase bending of your knee to 90 degrees and beyond and to fully straighten your knee. B. You may progress at your own pace from walking with a walker or crutches to a cane; then to no assistive devices. C. Make walking a part of your daily routine. Be up as much as comfortable with rest periods throughout the day. Rest with leg elevation is very important. Use the ice wrap frequently for the first 3-4 weeks. D. There are no restrictions on activities. You may ride in a car, shop, participate in technical solutions consultant and all social activities. E. Wear the long elastic stockings (ASHA hose) 20 hours a day for 2 weeks after surgery. They can be removed several times a day for laundering and for a bath. F. You may shower, no tub baths until cleared by your doctor. SPECIAL CARE INSTRUCTIONS: VERY IMPORTANT TO READ AND REVIEW A. There are a few signs you need to watch for after you are home. Call [facility] if you notice any of the followin. Increased severe knee pain. Some pain is expected especially when you exercise. 2. Increased swelling in your leg or knee; pain or swelling of the calf muscle in either lower leg. 3. Any fluid drainage from the incision. 4. Shortness of breath or chest pain. B. Please call [facility] at if you have any concerns or questions about your operation or recovery. The doctor or his nurse will return your call promptly. C. You must take antibiotics before dental work, bladder, bowel or other surgery. Your doctor will provide you with a permanent care to carry describing this precaution. IMPORTANT: * REMEMBER TO TAKE ASPIRIN, 81 MG, TWICE DAILY FOR 4 WEEKS UNLESS OTHERWISE DIRECTED. THIS IS YOUR BLOOD THINNER. * HIGH RISK PATIENTS MAY BE PRESCRIBED A STRONGER BLOOD THINNER. THIS WILL BE PROVIDED AT DISCHARGE. * CALL IF INCREASED PAIN, REDNESS, DRAINAGE OR FEVER GREATER THAT 101. * WEAR ASHA HOSE 20 HOURS PER DAY FOR 2 WEEKS. This is a large suction dressing covering your incision. This will help pull any excess drainage from the wound and allow your incision to heal properly. You may shower with this if you can keep the unit outside of the shower. If any bleeding or leakage is noted please call your doctor's office. This will remain on your incision for 7 days and then should be removed. This can be done yourself or by the home nursing staff if applicable. The entire unit is disposable once removed. Once removed, keep incision clean and dry. If redness or drainage is noted, please call your surgeon. IF INCISION IS LEAKING THROUGH DRESSING, CALL THE OFFICE . FOLLOW UP VISIT: If appointment is not already scheduled: Please call [facility] to make a follow-up appointment for 2 weeks after your surgery at . Stand-Alone Forms: [employer], Smoking Cessation Medications and DC Order Prescriptions: New acetaminophen [Tylenol Extra Strength] 500 mg Tablet 1,000 mg PO Q8 Qty: 60 0RF oxycodone 5 mg Tablet 5 - 10 mg PO .Q4h-6h MDD 6 PRN (Reason: pain) Qty: 30 0RF Rx Instructions: Ongoing therapy, Dr. Degroot supervising Continued levothyroxine [Synthroid] 75 mcg tablet 75 mcg PO QAM olmesartan 40 mg tablet 40 mg PO QAM metoprolol tartrate 25 mg tablet 12.5 - 25 mg PO UD Rx Instructions: Take 1 Tab by mouth in the morning and 1/2 tablet in the evening hydrochlorothiazide 25 mg tablet 25 mg PO DAILY meloxicam 7.5 mg tablet 7.5 mg PO BID potassium chloride 10 mEq tablet extended release 10 meq PO QPM simvastatin 10 mg tablet 10 mg PO QPM cholecalciferol (vitamin D3) 1,000 unit capsule 1,000 units PO QAM amlodipine 5 mg Tablet 7.5 mg PO QAM Rx Instructions: Take 1.5 Tabs by mouth daily buspirone 5 mg Tablet 5 mg PO BID PRN (Reason: Anxiety) Patient Comments: HAS NOT USED IN QUITE AWHILE. Eliquis 5 mg Tablet 5 mg PO BID famotidine 20 mg tablet 20 mg PO BID oxcarbazepine 300 mg tablet 300 mg PO BID Discharge Orders: Discharge Order (Routine); Ordered 10/21/22 Ordered By: Dustin Lopez Admission Data Admit Date/Time: 10/20/22 14:16 Attending Provider: Stas Degroot Admit Provider: Stas Degroot Primary Care Provider: Adamaris Jesus Other Providers: Korey Beyer ; Kan Perez Other Interventions: Discharge Summary Assessment (RN) Last Done: 10/21/22 11:26
== END 2022-10-21 13:06 | disposition home or self-care (01) ==
LOC: ASU 09:31 → 3E 09:31